=== PATIENT | male | born 2005 | race Two or more races ===

== ENCOUNTER 2024-09-29 09:59 | Emergency (ER) | payer OTHER, SELFPAY ==
--- NOTE | ~2024-09-29 | CT_ITS ---
CLINICAL HISTORY: syncope, head inury, vomiting CT head without contrast Comparison: None Findings: No intra-axial mass, midline shift, hydrocephalus, or acute hemorrhage. No significant atrophy-like change or white matter disease. The visualized paranasal sinuses and mastoid air cells are normal. The orbits are unremarkable. There is no acute fracture. IMPRESSION: 1. No acute intracranial findings. This document has been electronically signed by: Scott Correa MD on 09/29/2024 11:40:06
--- NOTE | 2024-09-29 10:03 | ECG_ITS ---
Test Reason : SYNCOPE Blood Pressure : */* mmHG Vent. Rate : 70 BPM Atrial Rate : 70 BPM P-R Int : 118 ms QRS Dur : 88 ms QT Int : 380 ms P-R-T Axes : 24 83 58 degrees QTcB Int : 410 ms Normal sinus rhythm with sinus arrhythmia Normal ECG No previous ECGs available Referred By: Lizzy Murray Electronically Signed By: CARINE ARANGO MD
[2024-09-29 10:05] VITALS: BP 108/74; BP 113/69; PULSE 68; PULSE 76; RESP 18; TEMP 36.4; O2SAT 100; O2SAT 97; BMI 21.5
--- NOTE | 2024-09-29 10:06 | ED_ITS ---
HPI - Syncope General Chief Complaint: Syncope Stated Complaint: SYNCOPAL EPISODE Time Seen by Provider: 09/29/24 10:02 Source: patient, family and EMS Mode of arrival: EMS Limitations: no limitations History of Present Illness ED Provider: katie harp np HPI narrative: Patient is a 19-year-old male who presents emergency department via EMS for evaluation. Patient admits that he will often have frequent bouts of vomiting. Not sure exactly what brings them on. He states that he began vomiting last night had at least 3 episodes of vomiting. He awoke this morning with a headache for which he took 2 aspirin, pulse a mild pain in the epigastric region, and felt as though he was going to vomit again, per patient's family reports he had vomited, was in a standing position when he had syncopized fell to the ground and struck his head. Patient does not recall this syncopal episode happening. Has no seizure history, no associated bladder or bowel incontinence, he is not anticoagulated and has no known coagulation disorders. He denies any history of syncope in the past with vomiting. He does admit to a history of marijuana usage. He denies dizziness, lightheadedness, neck pain or neck stiffness, chest pain, shortness of breath, palpitations, hematochezia, melena, history of VTE, family history of sudden at a young age. Related Data Previous Rx's ?Medication ?Instructions ?Recorded ondansetron 4 mg disintegrating 4 mg PO Q8H PRN nausea and 09/29/24 tablet vomiting #10 tabs Allergies Allergy/AdvReac Type Severity Reaction Status Date / Time No Known Allergies Allergy Verified 09/29/24 10:08 [No Known Allergies*] Review of Systems 2 Review of Systems: Yes all other systems are reviewed and are negative [facility] Past Medical History Attestation statement: The following information was validated with the patient. Source: old records reviewed Social History Social History Advance Directives: No Advance Directives Information Provided: Yes Physical Exam 2 Vital Signs: Vital Signs: Last Vital Signs Temp 97.9 F 09/29/24 12:17 Pulse 68 09/29/24 12:17 Resp 16 09/29/24 12:17 BP 114/67 09/29/24 12:17 Pulse Ox 98 09/29/24 12:17 O2 Del Method Room Air 04/13/25 12:17 BMI result Body Mass Index 21.5 Appearance: Alert.?Oriented to person, place and time. No acute distress.?Normal affect. Eyes: Pupils equal, round and reactive to light.? EOMI. No nystagmus. ENT: Pharynx normal.?? Neck: Normal inspection.? Neck supple.??Full range of motion. No rigidity. CVS: Heart sounds normal. Normal heart rate and rhythm.? Pulses normal.?? Respiratory: No respiratory distress.? Lung sounds clear to auscultation bilaterally?? Abdomen: Soft and non-tender. Normoactive bowel sounds. No pulsatile mass.?? Skin: Skin warm and dry.? Normal skin color.? ? Extremities: No lower extremity edema.? No calf ttp? Neuro: Moves all extremities spontaneously. Sensation intact bilaterally. CN II- XII intact. No focal neuro deficits. Ambulates with normal steady gait. Course Reevaluation(s) Reevaluation #1: Orthostatic vital signs are negative. CBC is without leukocytosis anemia or thrombocytopenia. No DONNA mild lactic acidosis of 2.5, at this time is without evidence of acute bacterial infection, no leukocytosis, afebrile, benign examination, may be reactive from vomiting in addition to dehydration. LFTs are unremarkable. High sensitive troponin is below detectable limits, EKG with nonischemic appearance. Viral serologies are negative. Head CT is without acute intracranial pathology. Planning for p.o. trial an ambulatory trial Time: 11:44 Reevaluation #2: Ambulatory with steady gait, no lightheadedness or dizziness, no near syncope or even syncope. Tolerating oral intake. Suspect vasovagal syncope in the setting of vomiting secondary to either viral syndrome versus cannabis induced hyperemesis. At this time is stable for discharge home, strict return precautions discussed, outpatient follow-up with primary care provider. Medications Administered Discontinued Medications Generic Name Dose Route Start Last Admin Trade Name Freq PRN Reason Stop Dose Admin Sodium Chloride 1,000 mls @ 999 mls/hr 09/29/24 10:30 09/29/24 11:02 Ns IV 09/29/24 11:30 999 mls/hr .Q1H1M MIKI Administration Ondansetron HCl 4 mg 09/29/24 11:44 09/29/24 11:49 Ondansetron Hcl 4 Mg/2 Ml Vial IVPUSH 09/29/24 11:45 4 mg ONCE ONE Administration Medical Decision Making Medical Decision Making [facility] Narrative: Patient is a 19-year-old male with no reported past medical history who presents emergency department for evaluation of vomiting, epigastric pain and a headache which led to a syncopal episode this morning as per HPI. Patient does not recall the syncopal episode occurring. Denies any seizure history, there was no associated bladder bowel dysfunction, no reported seizure-like activity, I suspect that this is lower on the differential, out of abundance of caution will place on seizure precautions and obtain a lactic acid. A syncopal episode may have been vasovagal as a result of vomiting, however given associated headache and preceding vomiting will obtain CT of the head to exclude acute intracranial pathology such as [employer] mass, ICH, SDH. He has no focal neurological deficits, diplopia. He has no associated neck pain or neck stiffness, no midline cervical spine tenderness step-offs or deformities to suggest acute cervical spine fracture or subluxation. His abdominal examination is benign, lower suspicion for acute surgical abdomen. He does have a history of daily marijuana usage, his bouts of vomiting may be associated with this, versus gastritis versus acute gastrointestinal illness. Denies associated chest pain, shortness of breath, palpitations and was not during exercise/exertion to suggest aortic stenosis, ACS, pulmonary embolism, pericardial effusion, aortic dissection. Differential Diagnosis Differential Diagnoses: The differential diagnosis associated with the presentation includes (See narrative above) Admission/Observation Consideration of admission/observation: Escalation of care including admission/observation considered (See narrative above) Lab Data MDM Lab Attestation statement: I reviewed the patient's lab results. 09/29/24 10:30 09/29/24 10:30 Labs: Lab Results 09/29/24 09/29/24 09/29/24 Range/Units 10:30 12:26 12:56 WBC 9.0 (4.8-10.8) X10*3/uL RBC 4.76 (4.60-5.80) X10*6/uL Hgb 15.7 (14.0-18.0) g/dl Hct 44.7 (42.0-52.0) % MCV 93.9 (80.0-98.0) fL MCH 33.0 (27.0-33.0) pg MCHC 35.1 (31.0-36.0) g/dl RDW 11.2 (11.0-16.0) % Plt Count 241 (160-400) X10*3/uL MPV 9.0 L (9.4-12.4) fL Immature Gran % (Auto) 0.4 (0.0-0.4) % Neut % (Auto) 80.7 H (45-73) % Lymph % (Auto) 13.3 L (20-40) % [place] % (Auto) 4.0 (2-11) % Eos % (Auto) 1.0 (0-4) % Baso % (Auto) 0.6 (0-2) % Lymph # (Auto) 1.2 (1.2-4.9) X10*3/uL [place] # (Auto) 0.4 (0.1-1.2) X10*3/uL Eos # (Auto) 0.1 (0.0-0.4) X10*3/uL Baso # (Auto) 0.1 (0.0-0.2) X10*3/uL Abs Immat Gran (auto) 0.04 H (0.00-0.03) X10*3/uL Absolute Neuts (auto) 7.2 (2.0-8.3) x10*3/uL Absolute Nucleated RBC 0.000 (0.0-0.012) X10*3/uL Nucleated RBC % (auto) 0.0 (0.0-0.2) /100WBC Sodium 141 (135-145) mmol/L Potassium 4.4 (3.3-5.1) mmol/L Chloride 111 H (96-108) mmol/L Carbon Dioxide 23 (22-29) mmol/L Anion Gap 11 L (12-20) BUN 15 (9-16) mg/dL Creatinine 0.82 (0.5-1.4) mg/dL Estim Creat Clear Calc 111.0 Estimated GFR > 60 Random Glucose 92 (60-115) mg/dL Lactic Acid 2.5 H* (0.5-2.0) mmol/L Lactic Acid F/U @ 2Hr 1.1 (0.5-2.0) mmol/L Calcium 9.1 (8.4-10.2) mg/dL Magnesium 2.0 (1.6-2.6) mg/dL Total Bilirubin 0.5 (0.0-1.0) mg/dL AST 20 (5-37) U/L ALT 14 (0-40) U/L Alkaline Phosphatase 64 (39-117) U/L Troponin I High Sens < 2.7 (<3.5-35.0) ng/L Total Protein 6.7 (6.5-8.0) g/dL Albumin 4.5 (3.5-5.0) g/dL Lipase 7 L (8-78) U/L Urine Color Yellow Urine Appearance Clear Urine pH 6.0 (5.0-9.0) Ur Specific [place] 1.025 (1.005-1.025) Urine Protein Trace (Neg-Trace) mg/dL Urine Glucose (UA) Negative (Negative) mg/dL Urine Ketones Trace (Negative) mg/dL Urine Blood Negative (Negative) Urine Nitrite Negative (Negative) Ur Leukocyte Esterase Small (1+) H (Negative) Urine RBC 0-2 (0-2) /HPF Urine WBC 11-20 H (0-5) /HPF Ur Squamous Epith Cells 0-2 (0-2) /HPF Urine Bacteria None Seen (None Seen) Hyaline Casts 0-2 (0-2) /LPF Influenza Type A (PCR) NEGATIVE (Negative) Influenza Type B (PCR) NEGATIVE (Negative) RSV RNA Qual (PCR) NEGATIVE (Negative) SARS-CoV-2 RNA (RT-PCR) NEGATIVE (Negative) Independent Interpretation I performed an independent interpretation of an: EKG (EKG revealing normal sinus rhythm with ventricular rate of 70, QTC 410, slight J-point elevation globally likely secondary to being an otherwise young healthy male) and CT Scan (No ICH, no intracranial mass, no CVA) Radiology Impression Discussion of test interpretation with radiology: I have reviewed the radiologist's reading. Radiologist Impression: CT head without contrast Comparison: None Findings: No intra-axial mass, midline shift, hydrocephalus, or acute hemorrhage. No significant atrophy-like change or white matter disease. The visualized paranasal sinuses and mastoid air cells are normal. The orbits are unremarkable. There is no acute fracture. IMPRESSION: 1. No acute intracranial findings. Independent Historian Clinical information obtained from an independent historian. History obtained from or confirmed by: EMS External Record Review External record reviewed: Outpatient record Discharge Plan Discharge Clinical Impression: Vasovagal syncope Patient Disposition: Home, Self-Care Instructions: Syncope (ED) Additional Instructions: Workup today was very reassuring. Head CT was normal. Testing for COVID, flu, RSV were negative. Blood tests were overall unremarkable. You may be experiencing these recurrent bouts of vomiting from marijuana usage, as this can happen for some people. Additionally, you may be having these symptoms in relation to a viral illness given you also have experienced a headache. It is not uncommon especially when dehydrated and vomiting to have what is known as a vasovagal syncopal episode resulting in you passing out. Please be sure to stay well hydrated, drink plenty of fluids, I will send a prescription for nausea medication to your pharmacy. Contact your primary care doctor to arrange for a follow-up visit within the next 3 days. Return to emergency department any new or worsening symptoms or concerns. Prescriptions: New ondansetron 4 mg tablet,disintegrating 4 mg PO Q8H PRN (Reason: nausea and vomiting) Qty: 10 0RF Referrals: Physician,None [Primary Care Provider] - Print Language: German
[2024-09-29 10:35] LABS: MANUAL DIFF FLAG NO
[2024-09-29 10:36] LABS: Basophils Absolute Auto 0.1 X10*3/uL (0.0-0.2); Basophils Percent Auto 0.6 % (0-2); Eosinophils Absolute Auto 0.1 X10*3/uL (0.0-0.4); Hematocrit 44.7 % (42.0-52.0); Hemoglobin 15.7 g/dl (14.0-18.0); Imm Gran Abs Auto 0.04 X10*3/uL (0.00-0.03); Imm Gran Pct Auto 0.4 % (0.0-0.4); Lymphocytes Absolute Auto 1.2 X10*3/uL (1.2-4.9); Lymphocytes Percent Auto 13.3 % (20-40); Mean Corpuscular HGB Conc 35.1 g/dl (31.0-36.0); Mean Corpuscular Volume 93.9 fL (80.0-98.0); Monocytes Absolute Auto 0.4 X10*3/uL (0.1-1.2); Neutrophils Absolute Auto 7.2 x10*3/uL (2.0-8.3); Neutrophils Percent Auto 80.7 % (45-73); Platelet Count 241 X10*3/uL (160-400); Red Blood Count 4.76 X10*6/uL (4.60-5.80); Red Cell Distribution Width 11.2 % (11.0-16.0)
[2024-09-29 10:37] VITALS: BP 97/62; PULSE 67
[2024-09-29 10:40] VITALS: BP 108/59; PULSE 74
[2024-09-29 10:44] VITALS: BP 116/62; PULSE 82
[2024-09-29 10:50] LABS: Alanine Aminotransferase 14 U/L (0-40); Albumin Level 4.5 g/dL (3.5-5.0); Alkaline Phosphatase 64 U/L (39-117); Anion Gap 11 (12-20); Aspartate Amino Transferase 20 U/L (5-37); Bilirubin Total 0.5 mg/dL (0.0-1.0); Blood Urea Nitrogen 15 mg/dL (9-16); Calcium 9.1 mg/dL (8.4-10.2); Carbon Dioxide 23 mmol/L (22-29); Chloride 111 mmol/L (96-108); Estimated Glomerular Filt Rate > 60; Glucose Random 92 mg/dL (60-115); Lipase 7 U/L (8-78); Potassium 4.4 mmol/L (3.3-5.1); Sodium 141 mmol/L (135-145); Total Protein 6.7 g/dL (6.5-8.0)
[2024-09-29 11:00] LABS: Troponin-I High Sensitivity < 2.7 ng/L (<3.5-35.0)
[2024-09-29 11:01] LABS: Lactic Acid 2.5 mmol/L (0.5-2.0)
[2024-09-29] MEDS: 0.9 % Sodium Chloride 1,000 ML 999 ML IV (11:02)
[2024-09-29 11:16] LABS: Influenza A PCR NEGATIVE (Negative); Influenza B PCR NEGATIVE (Negative); Resp Syncy Virus RNA Qual PCR NEGATIVE (Negative); SARS COV2 PCR INHOUSE NEGATIVE (Negative)
[2024-09-29] MEDS: ondansetron HCL 4 MG/2 ML VIAL IVPUSH (11:49)
[2024-09-29 12:17] VITALS: BP 114/67; PULSE 68; RESP 16; TEMP 36.6; O2SAT 98
[2024-09-29 12:32] LABS: Appearance Urine Clear; Color Urine Yellow; Glucose Urine UA Negative (Negative); Leukocyte Esterase Urine Small (1+) (Negative); Nitrite Urine Negative (Negative); Specific Gravity - Urine 1.025 (1.005-1.025); UMIC TRIGGER UACC YES; Urine Blood Negative (Negative); Urine Ketones Trace mg/dL (Negative); Urine Protein Trace mg/dL (Neg-Trace)
[2024-09-29 12:34] LABS: Reflex Lactate? Lactic Acid Added
[2024-09-29 12:37] LABS: Bacteria Urine None Seen (None Seen); Hyaline Casts Urine 0-2 /LPF (0-2); RBC Urine 0-2 /HPF (0-2); Squamous Epithelial Cell Urine 0-2 /HPF (0-2); UACC Culture Trigger YES
[2024-09-29 13:15] LABS: ~Lactic Acid-LAB USE ONLY 1.1 mmol/L (0.5-2.0)
[2024-09-29 13:56] VITALS: BP 118/61; PULSE 76; RESP 15; TEMP 36.8; O2SAT 99
== END 2024-09-29 13:56 | disposition home or self-care (01) ==
PROVIDERS: Nurse Practitioner Family; Emergency Provider Emergency Medicine
DX: R55 Syncope and collapse (principal); R11.10 Vomiting, unspecified; R51.9 Headache, unspecified; Z03.818 Encounter for observation for suspected exposure to other biological agents ruled out
CPT/HCPCS: 0241U; 36415; 70450; 80053; 81001; 83605; 83690; 83735; 84484; 85025; 87086; 93005; 96374; 99284; J2405

== ENCOUNTER → 2024-09-29 10:03 | Outpatient (BNV) | payer OTHER, SELFPAY | PROVIDERS: Emergency Provider Emergency Medicine; Visit Provider Internal Medicine Cardiovascular Disease | DX: R55 Syncope and collapse (principal) | CPT/HCPCS: 93010 ==

== ENCOUNTER → 2024-09-29 10:17 | Outpatient (BNV) | payer OTHER, SELFPAY | PROVIDERS: Emergency Provider Emergency Medicine; Visit Provider Radiology Diagnostic Radiology | DX: R55 Syncope and collapse (principal) | CPT/HCPCS: 70450 ==

== ENCOUNTER 2025-06-05 09:47 | Emergency (ER) | payer OTHER, SELFPAY ==
[2025-06-05 09:53] VITALS: BP 110/76; BP 129/79; PULSE 92; PULSE 98; RESP 14; TEMP 36.9; O2SAT 98; BMI 22.3
--- NOTE | 2025-06-05 10:00 | PC.NURSE ---
patient presented to the ED via EMS from home post seizure this morning around 0900. Patient reports he was sleeping when seizure occurred and witnessed by girlfriend. Reported seizure lasted ~3 minuets long. Does have a seizure history, last one occurred December 30 and lasted 25 seconds. Patient does endorse current headache. Does not take anti-seizure medication at home. VSS. Hooked up to monitor. Labs ordered.
[2025-06-05 10:18] LABS: MANUAL DIFF FLAG NO
[2025-06-05 10:20] LABS: Hematocrit 47.9 % (42.0-52.0); Hemoglobin 16.2 g/dl (14.0-18.0); Imm Gran Abs Auto 0.01 X10*3/uL (0.00-0.03); Imm Gran Pct Auto 0.2 % (0.0-0.4); Lymphocytes Absolute Auto 2.1 X10*3/uL (1.2-4.9); Mean Corpuscular HGB Conc 33.8 g/dl (31.0-36.0); Mean Corpuscular Hemoglobin 32.3 pg (27.0-33.0); Mean Corpuscular Volume 95.4 fL (80.0-98.0); NRBC Abs Auto 0.000 X10*3/uL (0.0-0.012); NRBC Pct Auto 0.0 /100WBC (0.0-0.2); Platelet Count 265 X10*3/uL (160-400); Red Blood Count 5.02 X10*6/uL (4.60-5.80); White Blood Count 5.8 X10*3/uL (4.8-10.8)
[2025-06-05 10:45] LABS: Alanine Aminotransferase 14 U/L (0-40); Albumin Level 4.6 g/dL (3.5-5.0); Alkaline Phosphatase 62 U/L (39-117); Anion Gap 14 (12-20); Aspartate Amino Transferase 21 U/L (5-37); Blood Urea Nitrogen 15 mg/dL (9-16); Calcium 8.9 mg/dL (8.4-10.2); Carbon Dioxide 22 mmol/L (22-29); Chloride 110 mmol/L (96-108); Creatinine Clr Calc Pharmacy 99.6; Estimated Glomerular Filt Rate > 60; Potassium 4.3 mmol/L (3.3-5.1); Sodium 142 mmol/L (135-145); Total Protein 6.7 g/dL (6.5-8.0)
--- NOTE | 2025-06-05 11:14 | ED_ITS ---
HPI - Seizure General Chief Complaint: Seizure Stated Complaint: SZ,POST ICTAL,BIT HIS TONGUE PER EMS Time Seen by Provider: 06/05/25 11:13 Source: patient and other ( significant other) Mode of arrival: ambulatory Limitations: no limitations History of Present Illness ED Provider: Dr. Cristobal Hilton HPI Narrative: 20-year-old male with a history of seizures not on medications who presents emergency department for evaluation of seizure and tongue bite injury. The patient was sleeping with his girlfriend. The girlfriend states that she woke up when she felt the patient shaking. She states the patient was shaking uncontrollably for approximately 7 minutes. The shaking eventually stopped, the patient was altered but by the time he was transported to the emergency department by ambulance he was back to normal. The patient states that this is his 3rd seizure. it is unclear what workup the patient has had prior but he does report having an EEG which was normal. The patient states that only take quetiapine 25 mg at night for sleep. He states that he has been having difficulty sleeping recently. He states that 2 days prior he had 2 episodes of vomiting but otherwise has not been ill. At the time my evaluation, patient was complaining of a headache and pain on the sides was tongue where he accidentally bit himself,otherwise had no other significant complaints. Seizure History: Yes Place: Home Related Data Previous Rx's ?Medication ?Instructions ?Recorded ondansetron 4 mg disintegrating 4 mg PO Q8H PRN nausea and 09/29/24 tablet vomiting #10 tabs levetiracetam 500 mg tablet 500 mg PO Q12H #90 tabs ([place]) Allergies Allergy/AdvReac Type Severity Reaction Status Date / Time No Known Allergies (No Known Allergy Verified 06/05/25 09:58 Allergies*) Review of Systems 2 Review of Systems: Yes all other systems are reviewed and are negative PMFSH Social History Social History Advance Directives: No Advance Directives Information Provided: Yes Physical Exam 2 Vital Signs: Vital Signs: Last Vital Signs Temp 98.9 F 06/05/25 14:55 Pulse 64 06/05/25 14:55 Resp 18 06/05/25 14:55 BP 103/56 L 06/05/25 14:55 Pulse Ox 96 06/05/25 14:55 O2 Del Method Room Air 06/05/25 14:55 BMI result Body Mass Index 22.3 vital signs were normal Exam: General: Awake, alert in no distress Head: Normocephalic, atraumatic EENT: PERRL, sclera and conjunctiva are normal, mouth with no erythema or exudates, the patient has bite wounds to the lateral aspect of both sides of his tongue, no suturable laceration noted Neck: Supple, no adenopathy Lung: breath sounds symmetric, no wheezing, no rales and no rhonchi Chest: symmetric movement, nontender Heart: regular rate and rhythm, normal S1, S2 no murmurs or rubs Abdomen: soft, non-tender, nondistended, normal bowel sounds Back: no vertebral tenderness, no CVAT Extremities: no deformities, moves all extremities symmetrically, no edema Neuro: Awake, alert, oriented, normal speech, cranial nerves 2-12 intact, moves all extremities symmetrically Psych: Pleasant, cooperative Medications Administered Discontinued Medications Generic Name Dose Route Start Last Admin Trade Name Freq PRN Reason Stop Dose Admin Sodium Chloride 1,000 mls @ 999 mls/hr 06/05/25 11:45 06/05/25 13:38 Ns IV 06/05/25 12:45 Infused .Q1H1M STA Infusion Dextrose/Sodium Chloride 1,000 mls @ 125 mls/hr 06/05/25 12:45 06/05/25 13:38 D5ns IVCONT Not Given .Q8H MIKI Ketorolac Tromethamine 15 mg 06/05/25 11:45 06/05/25 11:51 Ketorolac Tromethamine 15 Mg/Ml Vial IVPUSH 06/05/25 11:46 15 mg ONCE STA Administration Levetiracetam 500 mg 06/05/25 11:45 06/05/25 11:51 Levetiracetam 500 Mg Tablet PO 06/05/25 11:46 500 mg ONCE ONE Administration Levetiracetam 500 mg 06/05/25 12:34 06/05/25 12:40 Levetiracetam 500 Mg Tablet PO 06/05/25 12:35 500 mg ONCE ONE Administration Ondansetron HCl 4 mg 06/05/25 12:34 06/05/25 12:36 Ondansetron Hcl 4 Mg/2 Ml Vial IVPUSH 06/05/25 12:35 4 mg ONCE ONE Administration Sodium Zirconium Cyclosilicate 10 gm 06/05/25 12:35 06/05/25 13:38 Sodium Zirconium Cyclosilicate 10 Gm Powd.Pack PO 06/05/25 12:36 Not Given ONCE ONE Medical Decision Making Medical Decision Making [facility] Narrative: 20-year-old male with a history of seizures not on medications who presents emergency department for evaluation of seizure , tongue bite injury . Seizure occurred while the patient was sleeping and was witnessed by his girlfriend, who reports that the seizure lasted 7 minutes, patient postictal period is now back to normal at the time evaluation. This is the patient's 3rd seizure, he may have had an EEG is an outpatient but it is unclear whether workup is had. Vital signs were normal, physical examination was unremarkable except for bilateral tongue bite wounds. Differential diagnosis: Includes but is not limited to Seizure, pseudo- seizure, anxiety, electrolyte abnormalities, anemia Course: 11:45 My interpretation patient's laboratory evaluation is as follows: CBC was normal. CMP was normal. The patient was treated with normal saline 1 L IV, Toradol 15 mg IV, Zofran 4 mg IV and Keppra 1000 mg orally. the patient felt better after the above treatment. I did discuss treatment of seizures with the patient, since this is his 3rd seizure, I prescribed Keppra 500 mg b.i.d. with a 90 day supply and 3 refills. The patient will need to follow-up with neurology for re-evaluation and further management of his seizure disorder. Patient was given printed and verbal instructions and discharged home. Lab Data 06/05/25 10:13 06/05/25 10:13 Labs: Lab Results 06/05/25 Range/Units 10:13 WBC 5.8 (4.8-10.8) X10*3/uL RBC 5.02 (4.60-5.80) X10*6/uL Hgb 16.2 (14.0-18.0) g/dl Hct 47.9 (42.0-52.0) % MCV 95.4 (80.0-98.0) fL MCH 32.3 (27.0-33.0) pg MCHC 33.8 (31.0-36.0) g/dl RDW 11.9 (11.0-16.0) % Plt Count 265 (160-400) X10*3/uL MPV 8.8 L (9.4-12.4) fL Immature Gran % (Auto) 0.2 (0.0-0.4) % Neut % (Auto) 55.0 (45-73) % Lymph % (Auto) 35.6 (20-40) % [place] % (Auto) 5.7 (2-11) % Eos % (Auto) 2.8 (0-4) % Baso % (Auto) 0.7 (0-2) % Lymph # (Auto) 2.1 (1.2-4.9) X10*3/uL [place] # (Auto) 0.3 (0.1-1.2) X10*3/uL Eos # (Auto) 0.2 (0.0-0.4) X10*3/uL Baso # (Auto) 0.0 (0.0-0.2) X10*3/uL Abs Immat Gran (auto) 0.01 (0.00-0.03) X10*3/uL Absolute Neuts (auto) 3.2 (2.0-8.3) x10*3/uL Absolute Nucleated RBC 0.000 (0.0-0.012) X10*3/uL Nucleated RBC % (auto) 0.0 (0.0-0.2) /100WBC Sodium 142 (135-145) mmol/L Potassium 4.3 (3.3-5.1) mmol/L Chloride 110 H (96-108) mmol/L Carbon Dioxide 22 (22-29) mmol/L Anion Gap 14 (12-20) BUN 15 (9-16) mg/dL Creatinine 0.97 (0.5-1.4) mg/dL Estim Creat Clear Calc 99.6 Estimated GFR > 60 Random Glucose 115 (60-115) mg/dL Calcium 8.9 (8.4-10.2) mg/dL Total Bilirubin 0.4 (0.0-1.0) mg/dL AST 21 (5-37) U/L ALT 14 (0-40) U/L Alkaline Phosphatase 62 (39-117) U/L Total Protein 6.7 (6.5-8.0) g/dL Albumin 4.6 (3.5-5.0) g/dL Discharge Plan Discharge Clinical Impression: Epileptic seizure Patient Disposition: Home, Self-Care Instructions: Epilepsy (ED) Additional Instructions: Your symptoms of shaking uncontrollably and but in your tongue are consistent with a epileptic seizure (grand mal/tonic-clonic seizure). Since this has your 3rd seizure I want to start you on an antiseizure medicine called Keppra. Take Keppra 500 mg pills, 1 pill every 12 hours. You need to stay on this medication until you are re-evaluated by our neurologist. Continue taking your other medications as prescribed by your providers. Follow-up with your doctor in 2 days. Please call our Neurology group to make a follow up appointment to get further management of your seizure disorder and possible further testing. Please return to the emergency department if your symptoms get worse or if you develop any symptoms that are concerning to you. Prescriptions: New levetiracetam [Keppra] 500 mg tablet 500 mg PO Q12H Qty: 90 3RF No Action ondansetron 4 mg tablet,disintegrating 4 mg PO Q8H PRN (Reason: nausea and vomiting) Qty: 10 0RF Referrals: [facility] [Provider Group] Referral Note: Tonic-clonic seizure witnessed by girlfriend lasting 7 minutes with bilateral tongue bite wounds. This is the patient's 3rd seizure, not on medications. Patient is started on Keppra 500 mg q.12h, needs follow up for seizure management Clinical Impression: Epileptic seizure Interventions: ED Discharge Assessment Last Done: 06/05/25 14:55 Discharge Date/Time: 06/05/25 14:56 Print Language: Maldivian
[2025-06-05 13:23] VITALS: BP 99/49; PULSE 86; RESP 16; TEMP 37; O2SAT 97
[2025-06-05 14:55] VITALS: BP 103/56; PULSE 64; RESP 18; TEMP 37.2; O2SAT 96
== END 2025-06-05 14:56 | disposition home or self-care (01) ==
PROVIDERS: Emergency Provider Emergency Medicine Emergency Medical Services
DX: G40.909 Epilepsy, unspecified, not intractable, without status epilepticus (principal)
CPT/HCPCS: 36415; 80053; 85025; 96361; 96374; 96375; 99284; J1885; J2405